=== PATIENT | female | born 1955 ===

== ENCOUNTER 2016-08-22 13:58 | Emergency (ER) | payer SELFPAY ==
[~2016-08-22] VITALS: Ht 162.6 cm; Wt 65.0 kg
[2016-08-22 14:00] VITALS: BP 190/111; PULSE 69; RESP 20; TEMP 98.1; O2SAT 98
--- NOTE | 2016-08-23 10:25 | EKG ---
Date Performed: 08/22/2016 Time Performed: 14:05:10 PTAGE: 61 years EKG: Sinus rhythm NORMAL ECG INTERPRETATION BASED ON A DEFAULT AGE OF 41 YEARS NO PREVIOUS TRACING DOCTOR: Kelly Serrato Interpretating Date/Time 08/23/2016 10:24:02
== END 2016-08-22 14:36 | disposition left against medical advice (07) ==
LOC: NED 13:58
DX: M54.9 Dorsalgia, unspecified (principal); I10 Essential (primary) hypertension
CPT/HCPCS: 93005; 99281